=== PATIENT | male | born 1995 | race Two or more races ===

== ENCOUNTER 2016-10-11 12:05 | Emergency (ER) | payer OTHER ==
[2016-10-11] MEDS ORDERED: BENZOCAINE/MENTHOL LOZENGE MM STA (12:55)
[2016-10-11] MEDS ORDERED: BENZOCAINE/MENTHOL LOZENGE MM ONE (12:57)
== END 2016-10-11 13:48 | disposition home or self-care (01) ==
DX: J02.9 Acute pharyngitis, unspecified (principal)
CPT/HCPCS: 87070; 87430; 99282; 99283; A9270

== ENCOUNTER 2016-12-16 08:54 | Emergency (ER) | payer OTHER ==
[2016-12-16 09:06] VITALS: BP 121/60
--- NOTE | 2016-12-16 09:30 | XRAY Preliminary Report ---
Exam: XR Ankle 3 View LT IMPRESSION: 1. Mild soft tissue swelling. 2. No fracture, dislocation or joint effusion. [facility] SITE ID: [id number]
--- NOTE | 2016-12-16 09:33 | XRAY Report ---
EXAM: LEFT ANKLE RADIOGRAPHY EXAM DATE: 12/16/2016 09:20 AM. CLINICAL HISTORY: Injury ground-level fall hiking. Pain. COMPARISON: None. TECHNIQUE: 3 views. FINDINGS: Bones: Normal. No fractures or bone lesions. Joints: Normal. No effusion. No subluxations. The ankle mortise is normally aligned. Soft Tissues: Mild anteromedial soft tissue swelling. IMPRESSION: 1. Mild soft tissue swelling. 2. No fracture, dislocation or joint effusion. [facility] Referring Provider Line: [phone] SITE ID: [id number]
[2016-12-16] MEDS ORDERED: ACETAMINOPHEN 325 MG TABLET PO STA (11:00)
[2016-12-16] MEDS ORDERED: IBUPROFEN 600 MG TABLET PO STA (11:00)
[2016-12-16] MEDS ORDERED: ACETAMINOPHEN 325 MG TABLET PO ONE (11:03)
[2016-12-16] MEDS ORDERED: IBUPROFEN 600 MG TABLET PO ONE (11:03)
--- NOTE | 2016-12-16 11:03 | ED Physician Documentation ---
PD HPI LOWER EXT INJURY - Stated complaint Stated Complaint: LEFT ANKLE INJ - Chief complaint Chief Complaint: Ext Problem - History obtained from History obtained from: Patient - History of Present Illness PD HPI LOW EXT INJURY LOCATION: Left, Ankle Type of injury: Twist (eversion) Where injury occurred: Work Timing - onset: Today Timing - details: Abrupt onset, Still present Worsened by: Moving, Palpating, Other (walking, hurts medial aspect.) Associated symptoms: Swelling. No: Weakness, Numbness Similar symptoms before: Has not had sx before Recently seen: Not recently seen Review of Systems Constitutional: denies: Fever, Chills Nose: denies: Rhinorrhea / runny nose, Congestion Throat: denies: Sore throat Respiratory: denies: Cough GI: denies: Nausea, Vomiting, Diarrhea Skin: denies: Abrasion (s), Laceration (s) Musculoskeletal: reports: Joint pain (ankle), Extremity swelling Neurologic: denies: Focal weakness, Numbness PD PAST MEDICAL HISTORY - Past Medical History Musculoskeletal: None - Past Surgical History Past Surgical History: No - Present Medications Home Medications: Ambulatory Orders Medication Instructions Recorded Confirmed Ibuprofen 800 mg PO TID #20 tablet 12/16/16 - Allergies Allergies/Adverse Reactions: Allergies Allergy/AdvReac Type Severity Reaction Status Date / Time No Known Drug Allergies Allergy Verified 10/11/16 12:12 - Social History Does the pt smoke?: No Smoking Status: Never smoker Does the pt drink ETOH?: No Does the pt have substance abuse?: No - Immunizations Immunizations are current?: Yes PD ED PE NORMAL - Vitals Vital signs reviewed: Yes - General General: Alert and oriented X 3, No acute distress, Well developed/nourished - Derm Derm: Normal color, Warm and dry - Extremities Extremities: Other (limping gait favoring ankle. Tender medial aspect of the ankle. No bony tenderness. Laterally normal, Achilles not tender, and distal foot not tender. ) Results - Vitals Vitals: Vital Signs - 24 hr 12/16/16 09:00 Temperature 36.3 C L Heart Rate 77 Respiratory 16 Rate Blood Pressure 121/60 O2 Saturation 100 Oxygen O2 Source Room air - Rads (name of study) left ankle Radiology: Prelim report reviewed, EMP read contemporaneously (no fracture) PD MEDICAL DECISION MAKING - ED course Complexity details: reviewed results, considered differential (ankle sprain. He has high boots but not supportive at ankle. Will give aircast, but will need to be more regular shoe then. Given work note for duty. 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 ), d/w patient Departure - Departure Disposition: 01 Home, Self Care Clinical Impression: Ankle sprain Qualifiers: Encounter type: initial encounter Involved ligament of ankle: deltoid ligament Laterality: left Qualified Code(s): S93.422A - Sprain of deltoid ligament of left ankle, initial encounter Condition: Stable Record reviewed to determine appropriate education?: Yes Instructions: ED Sprain Ankle W X Ray Follow-Up: [facility] [Provider Group] Prescriptions: Ibuprofen 800 mg PO TID #20 tablet Comments: Ankle brace when ambulating for 7-10 days. Ibuprofen three times daily for a week. Recheck if not better over the next week. Forms: Activity restrictions Discharge Date/Time: 12/16/16 11:12
== END 2016-12-16 11:12 | disposition home or self-care (01) ==
LOC: ED 08:54
DX: S93.422A Sprain of deltoid ligament of left ankle, initial encounter (principal); X50.0XXA Overexertion from strenuous movement or load, initial encounter; Y99.0 Civilian activity done for income or pay
CPT/HCPCS: 73610; 99283; A9270

== ENCOUNTER 2018-06-02 23:00 | Emergency (ER) | payer OTHER ==
[2018-06-03] MEDS ORDERED: ONDANSETRON ODT 4 MG TABLET TL STA (00:01)
[2018-06-03] MEDS ORDERED: SUMAtriptan 25 MG TABLET PO STA (00:01)
--- NOTE | 2018-06-03 00:03 | ED Physician Documentation ---
PD HPI HEADACHE - Stated complaint Stated Complaint: MIGRAINE - Chief complaint Chief Complaint: Neuro - History obtained from History obtained from: Patient - History of Present Illness Timing - onset: Yesterday Timing - onset during: Rest Timing - duration: Days (2) Timing - details: Gradual onset, Waxing and waning Pain level max: 7 Pain level now: 6 Location: Right Quality: Throbbing, Aching Associated symptoms: Nausea. No: Fever, Stiff neck, Vomiting, Weakness, Numbness, Syncope, Eye pain Improved by: Rest, Dark room Worsened by: Light, Noise - Additional information Additional information: has had similar headaches in the past. States abruptly stopped his medication for depression and anxiety a few days ago. States had been on it for a few weeks. Does not know the name of the medications. Review of Systems Constitutional: denies: Fever, Chills Respiratory: denies: Cough GI: denies: Nausea, Vomiting, Diarrhea Skin: denies: Rash Musculoskeletal: denies: Neck pain, Back pain Neurologic: denies: Focal weakness, Numbness PD PAST MEDICAL HISTORY - Past Medical History Past Medical History: Yes Neuro: Migraines Musculoskeletal: None - Past Surgical History Past Surgical History: Yes HEENT: Other - Present Medications Home Medications: Ambulatory Orders Medication Instructions Recorded Confirmed No Known Home Medications 06/02/18 06/02/18 - Allergies Allergies/Adverse Reactions: Allergies Allergy/AdvReac Type Severity Reaction Status Date / Time No Known Drug Allergies Allergy Verified 06/02/18 23:25 - Social History Does the pt smoke?: No Smoking Status: Never smoker Does the pt drink ETOH?: No Does the pt have substance abuse?: No - Immunizations Immunizations are current?: Yes - POLST Patient has POLST: No PD ED PE NORMAL - Vitals Vital signs reviewed: Yes - General General: Alert and oriented X 3, No acute distress, Well developed/nourished, Other (watching movies on his cell phone) - HEENT HEENT: PERRL, EOMI, Moist mucous membranes - Neck Neck: Supple, no meningeal sign - Cardiac Cardiac: RRR - Respiratory Respiratory: No respiratory distress, Clear bilaterally - Abdomen Abdomen: Soft, Non tender, Non distended - Back Back: No spinal TTP - Derm Derm: Warm and dry - Extremities Extremities: No edema - Neuro Neuro: Alert and oriented X 3, 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 Given Imitrex and Zofran. [place]. Recommend that he follow-up with his doctor tomorrow to discuss his medications and see if a taper as needed. No evidence of subarachnoid hemorrhage, epidural, subdural. Patient counseled regarding signs and symptoms for which I believe and urgent re-evaluation would be necessary. Patient with good understanding of and agreement to plan and is comfortable going home at this time This document was made in part using voice recognition software. While efforts are made to proofread this document, sound alike and grammatical errors may occur. Departure - Departure Disposition: 01 Home, Self Care Clinical Impression: Headache Qualifiers: Headache type: unspecified Headache chronicity pattern: acute headache Intractability: not intractable Qualified Code(s): R51 - Headache Condition: Good Instructions: ED Cephalgia Unspecified Follow-Up: your,doctor in 3 days [Other] Comments: The headache may be related to the abrupt stopping of your depression and anxiety medication. You should restart this and follow a taper with your doctor. Return if you worsen. Go home and rest tonight Discharge Date/Time: 06/03/18 00:34
[2018-06-03 00:34] VITALS: BP 136/72
== END 2018-06-03 00:34 | disposition home or self-care (01) ==
LOC: ED 23:00
DX: R51 Headache (principal)
CPT/HCPCS: 99283; A9270; Q0162

== ENCOUNTER 2018-08-12 00:27 | Emergency (ER) | payer OTHER ==
[2018-08-12] MEDS ORDERED: EPINEPHrine 1 MG/ML AMP IM STA (00:55)
[2018-08-12] MEDS ORDERED: diphenhydrAMINE INJ 50 MG/ML VIAL IVP STA (00:55)
[2018-08-12] MEDS ORDERED: DEXAMETHASONE 10 MG/ML VIAL IVP STA (00:55)
[2018-08-12] MEDS ORDERED: FAMOTIDINE 20 MG/2 ML VIAL IVP STA (00:55)
--- NOTE | 2018-08-12 02:55 | ED Physician Documentation ---
History of Present Illness - Stated complaint Stated Complaint: ITCHING,RASH ALL OVER - Chief complaint Chief Complaint: General - History obtained from History obtained from: Patient - History of Present Illness Timing: How many days ago (1) Pain level max: 3 Pain level now: 3 Severity Comments: moderate Quality: Itching Radiates to: None Improved by: nothing Worsened by: nothing Associated symptoms: stomach upset, shortness of breath Review of Systems Ten Systems: 10 systems reviewed and negative Constitutional: reports: Reviewed and negative Eyes: reports: Reviewed and negative Ears: reports: Reviewed and negative Nose: reports: Reviewed and negative Throat: reports: Reviewed and negative Cardiac: reports: Reviewed and negative Respiratory: reports: Reviewed and negative GI: reports: Reviewed and negative : reports: Reviewed and negative Skin: reports: Reviewed and negative Musculoskeletal: reports: Reviewed and negative Neurologic: reports: Reviewed and negative Psychiatric: reports: Reviewed and negative Endocrine: reports: Reviewed and negative Immunocompromised: reports: Reviewed and negative PD PAST MEDICAL HISTORY - Past Medical History Neuro: Migraines Musculoskeletal: None - Past Surgical History Past Surgical History: Yes HEENT: Other Other past surgical history: Reviewed and not pertinent - Present Medications Home Medications: Ambulatory Orders Medication Instructions Recorded Confirmed Cetirizine HCl/Pseudoephedrine 1 each PO BID PRN #30 tab.er.12h 08/12/18 [Zyrtec-D Tablet] Famotidine [Pepcid] 20 mg PO BID #60 tablet 08/12/18 predniSONE [Prednisone] 40 mg PO DAILY #10 tablet 08/12/18 - Allergies Allergies/Adverse Reactions: Allergies Allergy/AdvReac Type Severity Reaction Status Date / Time No Known Drug Allergies Allergy Verified 06/02/18 23:25 - Living Situation Living Situation: reports: Alone Living Arrangement: reports: At home - Social History Does the pt smoke?: No Smoking Status: Never smoker Does the pt drink ETOH?: No Does the pt have substance abuse?: No - Family History Family history: reports: Other (Reviewed and not pertinent) - Immunizations Immunizations are current?: Yes - POLST Patient has POLST: No PD ED PE NORMAL - Vitals Vital signs reviewed: Yes - General General: Alert and oriented X 3, No acute distress - HEENT HEENT: PERRL - Neck Neck: Supple, no meningeal sign - Cardiac Cardiac: RRR, No murmur - Respiratory Respiratory: Other (End expiratory wheezes) - Abdomen Abdomen: Normal bowel sounds, Soft, Non tender, Non distended - Derm Derm: Warm and dry, Other (Full body maculopapular rash) - Extremities Extremities: No deformity - Neuro Neuro: Alert and oriented X 3 - Psych Psych: Normal mood, Normal affect Results - Vitals Vitals: Vital Signs - 24 hr 08/12/18 00:31 Heart Rate 101 H Blood Pressure 125/77 O2 Saturation 100 Oxygen O2 Source Room air PD MEDICAL DECISION MAKING - ED course Complexity details: re-evaluated patient, considered differential, d/w patient, d/w family ED course: 23-year-old male with allergic reaction. Improved with Decadron, Benadryl, Pepcid, IM epinephrine. Patient observed for 2 hours. Discharged on Benadryl and Pepcid.Vital signs remained within normal limits. Departure - Departure Disposition: Home, Self Care Clinical Impression: Allergic reaction Qualifiers: Encounter type: initial encounter Qualified Code(s): T78.40XA - Allergy, unspecified, initial encounter Condition: Good Instructions: ED Allergic Reaction General Other Prescriptions: Cetirizine HCl/Pseudoephedrine [Zyrtec-D Tablet] 1 each PO BID PRN #30 tab.er.12h PRN Reason: nasal congestion Famotidine [Pepcid] 20 mg PO BID #60 tablet predniSONE [Prednisone] 40 mg PO DAILY #10 tablet Comments: Continue taking medications as prescribed. Review foods, new drugs, new soaps or detergents to consider what you may be allergic to.Follow-up with PCP within 24 hours. Return with worsening symptoms.
[2018-08-12 06:37] VITALS: BP 109/63
== END 2018-08-12 06:37 | disposition home or self-care (01) ==
LOC: ED 00:27
DX: T78.40XA Allergy, unspecified, initial encounter (principal); X58.XXXA Exposure to other specified factors, initial encounter
CPT/HCPCS: 99283

== ENCOUNTER 2018-08-12 18:40 | Emergency (ER) | payer OTHER ==
--- NOTE | 2018-08-12 19:38 | ED Physician Documentation ---
PD HPI SKIN - Stated complaint Stated Complaint: POSS ALLERGIC REACT - Chief complaint Chief Complaint: Allergic Rx - History obtained from History obtained from: Patient - History of Present Illness Timing - onset: Yesterday (had allergy symtpoms started yesterday and seen in ED. got Rx for meds but did not get to get them until this evening due to work hours. Was having itching back again this late afternoon. Took meds and is having some improvement to here, but concerned about recurrent allergic reaction.) Timing - details: Abrupt onset, Waxing and waning (having symptoms back this afternoon/evening.) Review of Systems Cardiac: denies: Chest pain / pressure Respiratory: denies: Dyspnea, Cough GI: denies: Nausea, Vomiting Skin: reports: Rash Neurologic: denies: Generalized weakness, Near syncope PD PAST MEDICAL HISTORY - Past Medical History Neuro: Migraines Musculoskeletal: None - Past Surgical History Past Surgical History: Yes HEENT: Other - Present Medications Home Medications: Ambulatory Orders Medication Instructions Recorded Confirmed Cetirizine HCl/Pseudoephedrine 1 each PO BID PRN #30 tab.er.12h 08/12/18 08/12/18 [Zyrtec-D Tablet] Famotidine [Pepcid] 20 mg PO BID #60 tablet 08/12/18 08/12/18 predniSONE [Prednisone] 40 mg PO DAILY #10 tablet 08/12/18 08/12/18 - Allergies Allergies/Adverse Reactions: Allergies Allergy/AdvReac Type Severity Reaction Status Date / Time No Known Drug Allergies Allergy Verified 08/12/18 18:52 - Social History Does the pt smoke?: No Smoking Status: Never smoker Does the pt drink ETOH?: No Does the pt have substance abuse?: No - Immunizations Immunizations are current?: Yes - POLST Patient has POLST: No PD ED PE NORMAL - Vitals Vital signs reviewed: Yes - General General: Alert and oriented X 3, No acute distress, Well developed/nourished - HEENT HEENT: Pharynx benign, Other (normal voice and swallowing) - Neck Neck: Supple, no meningeal sign, No adenopathy - Cardiac Cardiac: RRR, No murmur - Respiratory Respiratory: Clear bilaterally - Derm Derm: Normal color, Warm and dry - Neuro Neuro: Alert and oriented X 3, No motor deficit, Normal speech Results - Vitals Vitals: Vital Signs - 24 hr 08/12/18 08/12/18 08/12/18 18:45 19:21 19:41 Temperature 36.0 C L Heart Rate 108 H Respiratory 16 17 17 Rate Blood Pressure 118/95 H O2 Saturation 99 08/12/18 08/12/18 20:09 20:21 Temperature Heart Rate 89 Respiratory 16 16 Rate Blood Pressure 117/70 O2 Saturation 99 Oxygen O2 Source Room air PD MEDICAL DECISION MAKING - ED course Complexity details: considered differential (persisting allergic reaction with recurrent symptoms but had not taken any meds since ED visit until 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 Presume will take few days for symptoms to fade and will need meds PRN until then. ), d/w patient Departure - Departure Disposition: Home, Self Care Clinical Impression: Allergic reaction Qualifiers: Encounter type: subsequent encounter Qualified Code(s): T78.40XD - Allergy, unspecified, subsequent encounter Condition: Stable Record reviewed to determine appropriate education?: Yes Instructions: ED Allergic Reaction General Other Follow-Up: ALISSON BOBO MD [Primary Care Provider] - Comments: Continue with the previously prescribed medications. I presume you are more itchy today because of the inability to get the medicines in a timely fashion. I think the symptoms should stay quieted now that you are going to be on more regular treatment over the next several days. Drink lots of fluids. Recheck with your primary care if not improved over the next few days. Forms: Activity restrictions Discharge Date/Time: 08/12/18 20:25
[2018-08-12] MEDS ORDERED: diphenhydrAMINE 25 MG CAPSULE PO STA (20:05)
[2018-08-12 20:11] VITALS: BP 117/70
== END 2018-08-12 20:25 | disposition home or self-care (01) ==
LOC: ED 18:40
DX: T78.40XD Allergy, unspecified, subsequent encounter (principal); X58.XXXD Exposure to other specified factors, subsequent encounter
CPT/HCPCS: 96372; 96374; 99283; A9270; J1200